=== PATIENT | male | born 2000 | race Two or more races ===

== ENCOUNTER 2024-12-13 20:41 | Emergency (ER) | payer MEDICAID, SELFPAY | END 2024-12-13 20:46 | disposition left against medical advice (07) | LOC: SERX 21:03 | PROVIDERS: Emergency Provider Emergency Medicine | DX: Z53.21 Procedure and treatment not carried out due to patient leaving prior to being seen by health care provider (principal) ==

== ENCOUNTER 2025-08-30 16:59 | Emergency (ER) | payer MEDICAID, SELFPAY ==
[2025-08-30 17:05] VITALS: BP 94/45; PULSE 88; RESP 16; TEMP 36.5; O2SAT 96
[2025-08-30 17:06] VITALS: BMI 23.6
[2025-08-30 17:48] LABS: Basophils # (Auto) 0.0 Thou/mm3 (0.0-0.2); Basophils % (Auto) 0 % (0-2.5); Eosinophils # (Auto) 0.4 Thou/mm3 (0.0-0.5); Eosinophils % (Auto) 3 % (0-10); Hematocrit 45.0 % (41.0-53.0); Hemoglobin 15.0 g/dL (13.5-16.0); Immature Granulocytes Auto 0.10 Thou/mm3 (0.00-0.00); Lymphocytes # (Auto) 2.4 Thou/mm3 (1.0-4.8); Lymphocytes % (Auto) 22 % (10-50); Mean Corpuscular HGB Conc 33.3 g/dl (31.0-37.0); Mean Corpuscular Hemoglobin 30.6 pg (25.0-35.0); Mean Corpuscular Volume 92 fL (80-100); Monocytes # (Auto) 0.6 Thou/mm3 (0.0-0.8); Monocytes % (Auto) 6 % (0-12); Neutrophils # (Auto) 7.4 Thou/mm3 (1.8-7.7); Neutrophils % (Auto) 68 % (37-80); Nucleated Red Blood Cell # 0.00 Thou/mm3 (0.00-0.00); Nucleated Red Blood Cell % 0 /100 WBC (0); Platelet Count 284 Thou/mm3 (140-440); RDW Standard Deviation 42.2 fL (35.1-43.9); Red Blood Count 4.90 Miln/mm3 (4.50-5.90); White Blood Count 10.9 Thou/mm3 (3.8-10.6)
[2025-08-30] MEDS: RINGERS LACTATED 1000 ML 1,000 ML 999 ML IV (17:59)
[2025-08-30 18:03] LABS: Alanine Aminotransferase 42 U/L (10-49); Albumin, Serum 5.3 gm/dL (3.5-5.0); Albumin/Globulin Ratio 2.1 (1.2-2.2); Alkaline Phosphatase 91 U/L (46-116); Anion Gap 19 (7-16); Aspartate Amino Transferase 56 U/L (0-34); BUN/Creatinine Ratio 10 Ratio (12-20); Bilirubin,Total 0.4 mg/dL (0.3-1.2); Blood Urea Nitrogen 13 mg/dL (9-23); Calcium 9.9 mg/dL (8.3-10.6); Calcium (Corrected) 9.9 mg/dL (8.5-10.1); Carbon Dioxide 18.7 mMol/L (20.0-31.0); Chloride 106 mMol/L (98-107); Creatinine (Component) 1.3 mg/dL (0.6-1.3); Estimated Creatinine Clearance 90.5 mL/min (>60); Globulin 2.5 gm/dL (2.3-3.5); Osmolality,Calculated 283 (275-295); Potassium 3.7 mMol/L (3.4-5.1); Sodium 144 mMol/L (136-145); Total Protein 7.8 gm/dL (5.7-8.2); eGFR > 60 See Note
[2025-08-30 18:05] LABS: Glucose 49 mg/dL (74-106)
--- NOTE | 2025-08-30 18:51 | PD.EDMEDCL ---
ED Medical Clearance RME/HPI General Chief complaint: Medical Clearance Stated complaint: SENIOR LIVING CLEARANCE Time Seen by Provider: 08/30/25 17:15 Arrival date/time: 08/30/25 16:59 Limitations: no limitations RME / HPI RME / HPI Narrative: Dr. Jean?s Main ED Evaluation: Patient is a 25-year-old male with medical history notable for polysubstance use send emergency department for medical clearance prior to incarceration. Per the police communications dispatcher and the patient he awaited rest, around the length of approximately 3 football gibbons and then closed himself in a bathroom. He did not come out, please officers had to force open the door. For long force when he was on the floor. Patient states that he fell and hit his head. Remembers everything. Did not lose consciousness. Has some head pain. No neck pain. Does not take any blood thinners. Patient states that he used methamphetamines earlier today. Does not use any other substances. In the past has overdosed on fentanyl. Denies any chest abdominal pelvic upper or lower extremity back pain. No neck pain. No allergies to medications. Related Information Home Medications ?Medication ?Instructions ?Recorded ?Confirmed No Known Home Medications 09/25/19 05/20/23 Allergies Allergy/AdvReac Type Severity Reaction Status Date / Time No Known Allergies Allergy Verified 02/27/22 10:50 Review of Systems Review of Systems Systems Reviewed: All systems reviewed, normal except as documented Past Medical History Past Medical History CARDIAC: Negative Cardiac Disorders or Congestive Heart Failure RESPIRATORY: Negative Chronic Obstructive Pulmonary Disease (COPD) or Asthma GENITOURINARY: Negative Renal Disease ENDOCRINE: Negative Diabetes Mellitus Type 1 or Diabetes Mellitus Type 2 HEMATOLOGIC: Negative Sickle Cell Disease PSYCHO/SOCIAL: Positive Anxiety Social History SMOKING STATUS: Current every day smoker ED Exam General Limitations: Present no limitations General appearance: Present other (Sleepy but arousable to voice) Head Head exam: Present atraumatic, normocephalic and other (Mild tenderness palpation at the occiput, no hematoma, no skull depressions, no postauricular hematoma, no raccoon eyes) Eye Eye exam: Present normal appearance, PERRL and EOMI ENT ENT exam: Present normal exam and normal oropharynx Neck Neck exam: Present normal inspection and full ROM; Absent trachea midline Chest Chest inspection: Present normal inspection and symmetric chest wall rise Respiratory Respiratory exam: Present normal lung sounds bilaterally; Absent respiratory distress, wheezes or stridor Cardiovascular Cardiovascular exam: Present regular rate and normal rhythm Abdominal Exam Abdominal exam: Present soft; Absent distention, tenderness, guarding or rebound Extremities Exam Extremities exam: Present normal inspection, full ROM, tenderness and normal capillary refill Back Exam Back exam: Present normal inspection Neurological Exam Neurological exam: Present alert, oriented X3, CN II-XII intact and other Skin Skin exam: Present warm, dry and intact Course Quality Measures none Orders Category Date Time Status Insert IV NOW Care 08/30/25 17:[address] head/brain wo con Stat Exams 08/30/25 19:45 Completed CBC Stat Lab 08/30/25 17:25 Completed CMP [Comprehensive Metabolic Panel] Stat Lab 08/30/25 17:25 Completed CMP [Comprehensive Metabolic Panel] Stat Lab 08/30/25 19:53 Completed Drug Screen,Urine Stat Lab 08/30/25 17:15 Ordered Ondansetron Odt [Zofran Odt] Med 08/30/25 17:15 Discontinued 4 mg PO X1 ONE Ringers Lactated 1000 ml [Lactated Ringers] 1,000 ml Med 08/30/25 17:15 Discontinued IV 999 mls/hr Vital Signs Vital signs: Vital Signs Temperature 97.7 F 08/30/25 17:05 Pulse Rate 88 08/30/25 17:05 Respiratory Rate 16 08/30/25 17:05 Blood Pressure 94/45 L 08/30/25 17:05 Pulse Oximetry (%) 96 08/30/25 17:05 Oxygen Delivery Method Room Air 08/30/25 17:05 Medical Clearance MDM Narrative MDM Narrative:: Patient is a 25-year-old male with medical history notable for polysubstance use is in the emergency department for medical clearance prior to incarceration. Patient hit his head, presented somnolent but arousable. Blood pressure on presentation with systolic blood pressure 94, normal heart rate. 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 Ordered a liter of fluids, labs, CT brain. On reassessment, patient awake, answering questions, no longer excessively sleepy. Protecting his airway. Labs with evidence of no acute significant hematologic abnormality, patient bicarb is 18.7, anion gap 19. Patient glucose is 49 for the chemistry panel. We repeated a [id number] glucose at bedside, patient's glucose was 89. We provided patient with juice, sandwich and fed him. Trended patient's [id number] glucose. No significant transaminitis. Repeat metabolic panel with without acute metabolic abnormality. Patient glucose now 124, has sustained glucose within normal range. Patient mentating appropriately. CT head unremarkable. On multiple reevaluations patient GCS 15, not in distress, following commands. Will discharge to custody. Patient is to follow-up with his primary care doctor within 1 to 2 days. Advised on sobriety. Patient data External records reviewed:: [facility] previous records (Per chart review, patient was admitted here on 05/20/23 for acute drug overdose.) Clinical information provided by:: patient Social determinants that could affect healthcare access:: substance use Patient has the following chronic illnesses:: none How is presenting disease/condition affected by chronic disease/condition?: no chronic disease Evaluation data The following diagnostics were reviewed and interpreted by me:: lab results and radiology exam(s) Lab and/or radiology exams considered but not ordered:: none Interpretation Summary: [place] [place] [facility] Report Signed Patient: KAILEY HUGHES [facility]. Record#: [id number] Birthdate: 2000 Age/Sex: 25 / M Location: [facility] Attending Dr: Ordering Physician: Nichelle Jean MD Date of Service: 08/30/25 Procedure(s): CT head/brain wo con Accession Number(s): [id number] cc: Kvng Daniel MD; NO PRIMARY/FAMILY,PHYSICIAN; Nichelle Jean MD~ Examination: CT brain head without contrast. 2-D sagittal coronal reconstructions Date and time of exam: August 30, 2025 202 hours INDICATIONS: Ground-level fall today with injury to the head, head pain weakness CTDI: vol (mGy): 54.8 DLP: (mGycm): 1140 Technique: Multiple CT axial sections of the brain have been obtained, 5 mm slice thickness. Contrast has not been administered. 2-D sagittal, coronal reconstructions have been obtained Low dose protocols were performed. One or more of the following dose reduction techniques were used; automated exposure control, adjustment of the mA and/or KV according to patient size, use of iterative reconstruction technique. Findings: No significant ventricular enlargement. Intra-axial or extra-axial hemorrhage density is not seen. No mass effect or midline shift Basal cisterns are not remarkable. Fourth ventricle is midline. Cranial vault intact. Impression: Negative for acute hemorrhage, mass effect or midline shift Dictated By: Kvng Daniel MD Signed By: <Electronically signed by Kvng Daniel MD in [place]> 08/30/25 2117 Medications / Prescriptions Medications or Prescriptions considered but not ordered:: none Medication administrations:: Medication Administration History Discontinued Medications Lactated Ringer's (Lactated Ringers) 1,000 mls @ 999 mls/hr IV .Q1H1M ONE Stop: 08/30/25 18:15 Last Admin: 08/30/25 17:59 Dose: 999 mls/hr Documented By: BD Ondansetron HCl (Ondansetron Odt 4 Mg Tabrap) 4 mg PO X1 ONE; Protocol Stop: 08/30/25 17:16 Last Admin: 08/30/25 17:58 Dose: Not Given Documented By: BD Non-Admin Reason: Patient Refused see above Consultations Consultation(s) initiated? (list below): No Diagnosis Medical Clearance Differential Diagnosis: other (drug use, alcohol use, polysubstance abuse, dehydration, hypoglycemia, electrolyte abnormality) Most likely diagnosis given after review of the tests above:: see clinical impression below Admission Indicated Admission indicated?: not indicated Admission Request Was there a request for admission?: No Disposition Plan Disposition Plan: Discharge Discharge Attestation Discharge Attestation: The patient and all family members were given an opportunity to ask questions and understood the discharge instructions. Discharge instructions specifically effects, indications for sooner follow up or return to the emergency department, and the expected course of current diagnosis. Patient condition: Stable Critical Care Time Critical Care Time Critical Care Time: Yes Total Critical Care Time (min.): 36 Attestation: Due to a high probability of clinically significant, life threatening deterioration, the patient required my highest level of preparedness to intervene emergently and I personally spent this critical care time directly and personally managing the patient. This critical care time included obtaining a history; examining the patient; pulse oximetry; ordering and review of studies; arranging urgent treatment with development of a management plan; evaluation of patient's response to treatment; frequent reassessment; and, discussions with other providers. This critical care time was performed to assess and manage the high probability of imminent, life-threatening deterioration that could result in multi-organ failure. It was exclusive of separately billable procedures and treating other patients and teaching time. Please see MDM section and the rest of the note for further information on patient assessment and treatment. Discharge Plan Plan Patient Disposition: Custodial/Court/Law Prescriptions/Referrals Prescriptions/Med Rec: No Action No Known Home Medications Problem List Clinical Impression: Methamphetamine use, Low blood pressure Patient/Caregiver Discharge Instructions Education Materials: Understanding Methamphetamine ... Additional Instructions: Please follow-up with your primary care doctor within 1 to 2 days. I highly recommend that you consider sobriety. Hydrate well and eat a balanced diet. Print Language: Khmer
[2025-08-30 19:00] VITALS: BP 114/72; PULSE 99; RESP 16; TEMP 36.9; O2SAT 98
--- NOTE | 2025-08-30 19:45 | XR_ITS ---
Examination: CT brain head without contrast. 2-D sagittal coronal reconstructions Date and time of exam: August 30, 20252028 hours INDICATIONS: Ground-level fall today with injury to the head, head pain weakness CTDI: vol (mGy): 54.8 DLP: (mGycm): 1140 Technique: Multiple CT axial sections of the brain have been obtained, 5 mm slice thickness. Contrast has not been administered. 2-D sagittal, coronal reconstructions have been obtained Low dose protocols were performed. One or more of the following dose reduction techniques were used; automated exposure control, adjustment of the mA and/or KV according to patient size, use of iterative reconstruction technique. Findings: No significant ventricular enlargement. Intra-axial or extra-axial hemorrhage density is not seen. No mass effect or midline shift Basal cisterns are not remarkable. Fourth ventricle is midline. Cranial vault intact. Impression: Negative for acute hemorrhage, mass effect or midline shift
[2025-08-30 20:21] LABS: Alanine Aminotransferase 31 U/L (10-49); Albumin, Serum 4.2 gm/dL (3.5-5.0); Albumin/Globulin Ratio 2.2 (1.2-2.2); Alkaline Phosphatase 73 U/L (46-116); Anion Gap 9 (7-16); Aspartate Amino Transferase 39 U/L (0-34); BUN/Creatinine Ratio 11 Ratio (12-20); Bilirubin,Total 0.2 mg/dL (0.3-1.2); Blood Urea Nitrogen 12 mg/dL (9-23); Calcium 8.9 mg/dL (8.3-10.6); Calcium (Corrected) 8.9 mg/dL (8.5-10.1); Carbon Dioxide 27.5 mMol/L (20.0-31.0); Chloride 105 mMol/L (98-107); Creatinine (Component) 1.1 mg/dL (0.6-1.3); Estimated Creatinine Clearance 106.9 mL/min (>60); Globulin 1.9 gm/dL (2.3-3.5); Glucose 124 mg/dL (74-106); Osmolality,Calculated 281 (275-295); Potassium 4.2 mMol/L (3.4-5.1); Sodium 141 mMol/L (136-145); Total Protein 6.1 gm/dL (5.7-8.2); eGFR > 60 See Note
[2025-08-30 21:45] VITALS: BP 116/68; PULSE 86; RESP 18; TEMP 36.6; O2SAT 98
[2025-08-30 21:51] VITALS: BP 144/83; PULSE 70; RESP 18; TEMP 36.8; O2SAT 95
== END 2025-08-30 21:45 ==
LOC: SERX 21:16
PROVIDERS: Emergency Provider Emergency Medicine
DX: S09.90XA Unspecified injury of head, initial encounter (principal); W18.30XA Fall on same level, unspecified, initial encounter; F15.90 Other stimulant use, unspecified, uncomplicated
CPT/HCPCS: 36415; 70450; 80053; 80307; 85025; 96360; 99283; J7120